=== PATIENT | male | born 1970 | race African-American/Black ===

== ENCOUNTER 2018-05-25 17:28 | Emergency (ER) | payer OTHER ==
[~2018-05-25] VITALS: Ht 182.9 cm; Wt 63.2 kg
[2018-05-25 20:26] VITALS: BP 147/84
[2018-05-25] MEDS ORDERED: IBUPROFEN 600 MG TAB PO ONE (21:00)
[2018-05-25] MEDS ORDERED: HYDROcodone-ACET 10/325MG TAB PO ONE (21:00)
== END 2018-05-25 21:18 | disposition home or self-care (01) ==
LOC: ER 17:35
DX: S90.31XA Contusion of right foot, initial encounter (principal); W19.XXXA Unspecified fall, initial encounter; Y93.89 Activity, other specified; Y99.8 Other external cause status; Y92.89 Other specified places as the place of occurrence of the external cause
CPT/HCPCS: 73630; 99284; L3260